=== PATIENT | male | born 1950 | race Caucasian/White ===

== ENCOUNTER 2022-10-25 14:59 | Outpatient (REF) | payer MEDICARE, SELFPAY ==
--- NOTE | ~2022-10-25 | CT_ITS ---
EXAMINATION: CT ABDOMEN AND PELVIS WITHOUT CONTRAST CLINICAL INFORMATION: Personal history of urinary calculi. COMPARISON: None available. TECHNIQUE: Multidetector volumetric imaging was performed from the superior aspect of the liver through the pubic symphysis. Sagittal and coronal reformatted images were obtained on the technologist's workstation. This CT examination was performed using dose optimization techniques as appropriate, variously including the following: *Automated exposure control *Adjustment of mA and/or kV according to patient size (this includes techniques or standardized protocols for targeted exams where dose is matched to indication/reason for exam; i.e. extremities or head) *Use of iterative reconstruction technique DLP: 532 mGy-cm FINDINGS: LUNG BASES: The visualized lung bases are unremarkable. LIVER, GALLBLADDER, AND BILIARY TREE: The liver is normal in size, shape, and attenuation. No focal hepatic lesion or biliary ductal dilatation is present. There are multiple radiopaque gallstones without wall thickening. PANCREAS: Unremarkable. SPLEEN: Unremarkable. ADRENAL GLANDS: Unremarkable. KIDNEYS AND URETERS: Both kidneys are lobulated from multiple low-density and high-density cysts throughout both kidneys. The largest complex lesion midpole left kidney measures 5.6 cm on axial image 35/3. Also visualized are bilateral nonobstructive radiopaque calculi with mild caliectasis midpole left kidney. There is a large obstructive 3.2 cm radiopaque calculus left kidney. There is mild bilateral perinephric stranding. BLADDER: Unremarkable. GASTROINTESTINAL TRACT: There is scattered stool, diverticula and gas seen throughout the colon without significant distention. The small bowel loops are normal caliber. Appendix is normal caliber. The appendix and cecum lie in the midabdomen. No free air or free fluid seen. ABDOMINAL WALL: No significant hernia is appreciated. LYMPH NODES: Normal. VASCULAR: Unremarkable. PELVIC VISCERA: The prostate gland is mildly enlarged with central gland calcification.. OSSEOUS STRUCTURES: There is grade 1 anterolisthesis L4 over L5 and grade 1 retrolisthesis L1 over L2 and L2 over L3. There are degenerative disc changes L1-L2, L2-L3 and L3-L4 disc levels. No aggressive lytic or sclerotic process seen. CT/CT abdomen pelvis wo IV con IMPRESSION: 1. Multiple bilateral renal cysts. There is a large obstructive radiopaque calculus left kidney pelvis measuring 3.2 cm. There is mild caliectasis midpole left kidney. There is bilateral perinephric stranding. 2. Cholelithiasis without wall thickening. 3. Colonic diverticulosis without diverticulitis. Mild constipation. 4. Mild prostate enlargement with central gland calcification. 5. Degenerative disc changes throughout lumbar spine with grade 1 anterolisthesis L4-L5 and grade 1 retrolisthesis L1 over L2 and L2 over L3. There is grade 1 anterolisthesis L4 over L5. There are degenerative disc changes L1-L2, L2-L3 and L3-L4 disc levels. Fleischner guidelines were followed.
== END 2022-10-25 15:00 | disposition home or self-care (01) ==
LOC: HO.CT 14:59
PROVIDERS: PCP Internal Medicine; Visit Provider Urology
DX: Z87.442 Personal history of urinary calculi (principal)
CPT/HCPCS: 74176